=== PATIENT | female | born 1980 | race Two or more races ===

== ENCOUNTER 2020-03-04 13:34 | Emergency (ER) | payer BC, OTHER ==
[2020-03-04 14:14] LABS: ANION GAP 11.2 mEq/L (7-13); CHLORIDE,CL 101 mmol/L (98-107); SODIUM,NA 137 mmol/L (136-145)
--- NOTE | 2020-03-04 14:24 | EDM.PDOC ---
Scribed by Stephanie Marquis 03/04/20 [id number] for Holli Ortega NP ED HPI GENERAL MEDICAL PROBLEM - General Chief Complaint: Respiratory Problem Stated Complaint: COVID + SYPMTOMATIC Time Seen by Provider: 03/04/20 13:45 Source of Information: Reports: Patient, RN, RN Notes Reviewed History Limitations: Reports: No Limitations - History of Present Illness INITIAL COMMENTS - FREE TEXT/NARRATIVE: Patient is a 39-year-old female wh presents to the ER with complaint of increased shortness of breath. Symptoms began last weekend with fever, chills and body aches. Over the past week he has had stomach pain, diarrhea, nausea, cough and increased shortness of breath. Patient had a test this A.M. through [facility] and was COVID positive. Patient has a history of asthma. She has been using DuoNeb and dexamethasone since yesterday and has a script for methylprednisone. Onset: Gradual Duration: Getting Worse Location: Reports: Chest Quality: Reports: Ache Severity: Severe Improves with: Reports: None Worsens with: Reports: None Associated Symptoms: Reports: No Other Symptoms - Related Data Allergies Allergy/AdvReac Type Severity Reaction Status Date / Time Penicillins Allergy Anaphylactic Verified 03/04/20 13:55 Shock Home Meds: Home Meds Albuterol/Ipratropium [DuoNeb 3.0-0.5 MG/3 ML] 3 ml INH Q4HR PRN 03/04/20 [History] methylPREDNISolone [Methylprednisolone] 4 mg PO DAILY 03/04/20 [History] ED ROS GENERAL - Review of Systems Review Of Systems: Comprehensive ROS is negative, except as noted in HPI. ED EXAM, GENERAL - Physical Exam Exam: See Below Exam Limited By: No Limitations General Appearance: Moderate Distress Eye Exam: Bilateral Eye: EOMI, Normal Inspection, PERRL Ears: Normal External Exam, Normal Canal, Hearing Grossly Normal, Normal TMs Nose: Normal Inspection, Normal Mucosa, No Blood Throat/Mouth: Normal Inspection, Normal Lips, Normal Teeth, Normal Gums, Normal Oropharynx, Normal Voice, No Airway Compromise Head: Atraumatic, Normocephalic Neck: Normal Inspection, Supple, Non-Tender, Full Range of Motion Respiratory/Chest: Crackles (bases bilaterally), Other (diminished. ) Cardiovascular: Normal Peripheral Pulses, Regular Rate, Rhythm, No Edema, No Gallop, No JVD, No Murmur, No Rub GI/Abdominal: Normal Bowel Sounds, Soft, Non-Tender, No Organomegaly, No Distention, No Abnormal Bruit, No Mass (Female) Exam: Deferred Rectal (Female) Exam: Deferred Back Exam: Normal Inspection, Full Range of Motion, NT Extremities: Normal Inspection, Normal Range of Motion, Non-Tender, Normal Capillary Refill, No Pedal Edema Neurological: Alert, Oriented, CN II-XII Intact, Normal Cognition, Normal Gait, Normal Reflexes, No Motor/Sensory Deficits Psychiatric: Anxious Skin Exam: Warm, Dry, Intact, Normal Color, No Rash Lymphatic: No Adenopathy Course - Vital Signs Last Recorded V/S: Last Vital Signs Temp 98.8 F 03/04/20 13:52 Pulse 87 03/04/20 13:52 Resp 22 H 03/04/20 13:52 BP 107/89 03/04/20 13:52 Pulse Ox 99 03/04/20 13:52 - Orders/Labs/Meds Labs: Laboratory Tests 03/04/20 03/04/20 03/04/20 Range/Units 13:49 13:49 13:49 WBC 5.8 (5.0-10.0) 10^3/uL RBC 5.03 (4.2-5.4) 10^6/uL Hgb 15.5 (12.0-16.0) g/dL Hct 44.5 (37.0-47.0) % MCV 88.5 (80-100) fL MCH 30.8 (27.0-34.0) pg MCHC 34.8 (33.0-35.0) g/dL Plt Count 214 (150-450) 10^3/uL Neut % (Auto) 53.9 (42.2-75.2) % Lymph % (Auto) 34.9 (20.5-50.1) % Traill % (Auto) 9.3 H (2-8) % Eos % (Auto) 1.4 (1.0-3.0) % Baso % (Auto) 0.5 (0.0-1.0) % PT 9.2 (9.0-12.0) SEC INR 1.0 (0.9-1.2) D-Dimer, Quantitative 188 (0-400) ng/mL Sodium 137 (136-145) mmol/L Potassium 3.2 L (3.5-5.1) mmol/L Chloride 101 (98-107) mmol/L Carbon Dioxide 28 (21-32) mmol/L Anion Gap 11.2 (7-13) mEq/L BUN 16 (7-18) mg/dL Creatinine 1.00 (0.55-1.02) mg/dL Est Cr Clr Drug Dosing 65.87 mL/min Estimated GFR (MDRD) > 60 BUN/Creatinine Ratio 16.0 (No establ ref range) Glucose 106 H (74-99) mg/dL Calcium 9.5 (8.5-10.1) mg/dL Total Bilirubin 0.3 (0.2-1.0) mg/dL AST 18 (15-37) U/L ALT 34 (14-59) U/L Alkaline Phosphatase 53 (46-116) U/L C-Reactive Protein 0.5 (0.0-0.9) mg/dL Total Protein 9.0 H (6.4-8.2) g/dL Albumin 4.1 (3.4-5.0) g/dL Globulin 4.9 Albumin/Globulin Ratio 0.8 - Radiology Interpretation Free Text/Narrative:: Chest xray: PROCEDURE INFORMATION: Exam: XR Chest, 1 View Exam date and time: 03/04/2020 2:55 PM Age: 39 years old Clinical indication: Other: Chest pain TECHNIQUE: Imaging protocol: XR of the chest Views: 1 view. COMPARISON: No relevant prior studies available. FINDINGS: Lungs: Atelectatic changes noted within the lung bases, greater on the right. Pleural space: Unremarkable. No pleural effusion. No pneumothorax. Heart/Mediastinum: Unremarkable. No cardiomegaly. Bones/joints: Unremarkable. IMPRESSION: Atelectatic changes noted within the lung bases, greater on the right. Thank you for allowing us to participate in the care of your patient. Dictated and Authenticated by: Matt Rizo DO 03/04/2020 3:02 PM Central Time ([place] & [place]) See rad report Departure - Departure Time of Disposition: 15:08 Disposition: Home, Self-Care 01 Condition: Fair Clinical Impression: COVID-19, SOB (shortness of breath), Hypokalemia Upper respiratory infection Qualifiers: URI type: unspecified viral URI Qualified Code(s): J06.9 - Acute upper respiratory infection, unspecified - Discharge Information *PRESCRIPTION DRUG MONITORING PROGRAM REVIEWED*: No *COPY OF PRESCRIPTION DRUG MONITORING REPORT IN PATIENT SHELBIE: No Instructions: Shortness of Breath, Adult, [id number], Cough, Adult, [id number], Prevent the Spread of COVID-19 if You Are Sick - CDC, Potassium Content of Foods Forms: ED Department Discharge Additional Instructions: Rx: Azithromycin, Tessalon Perles Finish methylprednisolone at home, continue using duo nebs as tolerated Return to the ER with any worsening of problems Eat high potassium foods Sepsis Event Note (ED) - Focused Exam Vital Signs: Vital Signs Temp Pulse Resp BP Pulse Ox 03/04/20 13:52 98.8 F 87 22 H 107/89 99 I have read and agree with the documentation that has been completed regarding this visit. By signing this record, I attest that the documentation was completed in my physical presence and is an accurate record of the encounter.
--- NOTE | 2020-03-04 15:02 | CR ---
PROCEDURE INFORMATION: Exam: XR Chest, 1 View Exam date and time: 03/04/2020 2:55 PM Age: 39 years old Clinical indication: Other: Chest pain TECHNIQUE: Imaging protocol: XR of the chest Views: 1 view. COMPARISON: No relevant prior studies available. FINDINGS: Lungs: Atelectatic changes noted within the lung bases, greater on the right. Pleural space: Unremarkable. No pleural effusion. No pneumothorax. Heart/Mediastinum: Unremarkable. No cardiomegaly. Bones/joints: Unremarkable. IMPRESSION: Atelectatic changes noted within the lung bases, greater on the right.
[2020-03-04] MEDS ORDERED: Potassium Chloride 10 MEQ Tab.ER PO ONE (15:10)
== END 2020-03-04 15:20 | disposition home or self-care (01) ==
LOC: DL.ED 13:34
DX: U07.1 COVID-19 (principal); E87.6 Hypokalemia; J06.9 Acute upper respiratory infection, unspecified; Z88.0 Allergy status to penicillin; Z79.899 Other long term (current) drug therapy
CPT/HCPCS: 36415; 71045; 80053; 85025; 85379; 85610; 86140; 99285; A9270; 99283